=== PATIENT | male | born 2000 | race African-American/Black ===

== ENCOUNTER 2019-07-31 13:09 | Emergency (ER) | payer SELFPAY ==
[2019-07-31] MEDS ORDERED: Dexamethasone 4 MG TAB ONE (13:24)
[2019-07-31] MEDS ORDERED: Albuterol Sulfate 2.5 mg/3 ml Neb ONE (13:27)
== END 2019-07-31 14:02 | disposition home or self-care (01) ==
LOC: ERS 13:09
DX: J45.901 Unspecified asthma with (acute) exacerbation (principal)
CPT/HCPCS: 94640; J7611; J8540